=== PATIENT | male | born 1975 | race Caucasian/White ===

== ENCOUNTER 2016-05-11 10:07 | Inpatient (IN) | payer MEDICAID ==
[~2016-05-11] VITALS: Ht 170.2 cm; Wt 156.0 kg
--- NOTE | ~2016-05-11 | ECH ---
Transthoracic Echocardiography Report (TTE) Demographics Patient Name NEMESIO GARDUNO Date of Study 05/11/2016 Patient Number [id number] Visit Number [id number] Date of 1975 Room Number 424 Accession Number [id number] Gender Male Age 40 year(s) Referring Oz Montalvo MD Fitness And Wellness Director Anna Willis Physician RD Physician Interpreting Judah CARDONA Plastic Boat Patcher Physician Wilman Supervising Ordering Physician Oz Montalvo MD, MD/MLP Nurse Stress Pole Shaver Helper Conclusions Contractility Score Summary Normal Left Ventricular contractility was noted. Summary Technically fair exam. The estimated left ventricular ejection fraction is 60-65%. Mild to moderate concentric left ventricular hypertrophy. No significant valvular abnormalities. Recommendation The patient will be given the results of this study by the physician who ordered the exam. Procedure Type of Study TTE procedure Procedure Date Date: 05/11/2016 Start: 03:54 PM Technical Quality: Fair due to body habitus. Indications:Chest pain and Shortness of breath. Appropriate Use Criteria: 9 Height: 70 inches Weight: 339.95 pounds BSA: 2.62 m Rhythm: Within normal limits HR: 87 bpm BP: 154/68 mmHg M-Mode/2D Measurements LV Diastolic Dimension: 4.55 cm LV Systolic Dimension: 3.55 cm LV Septum Diastolic: 1.45 cm LV PW Diastolic: 1.45 cm AO Root Dimension: 3.05 cm Cardiac Output: 6.02 l/min LA Dimension: 3.48 cm Cardiac Index: 2.3 l/min*m RV Diastolic Dimension: 3.57 cm LA volume index: 15 ml/m Post Pericard Effusion: 0.4 cm LVOT: 2.08 cm LVOT VTI: 20.39 cm RV Base: 2.8 cm LV Stroke volume: 69.25 ml RV Mid: 1.9 cm LV Stroke volume index: 26.43 ml/m TAPSE: 3 cm TDI-S': 15 cm/s Doppler Measurements AV Peak Velocity: 1.3 m/s MV Peak E-Wave: 0.86 m/s AV Peak Gradient: 6.76 mmHg MV Peak A-Wave: 0.55 m/s AV Mean Gradient: 2.86 mmHg MV E/A Ratio: 1.58 LVOT Peak Velocity: 1.18 m/s MV P1/2t: 56.5 msec AV Area (Continuity):3.56 cm MV Deceleration Time: 198.9 msec MV Area (PHT): 3.9 cm PV Peak Velocity: 1.08 m/s E' Septal Velocity: 0.14 m/s PV Peak Gradient: 4.69 mmHg E' Lateral Velocity: 0.11 m/s A' Septal Velocity: 0.1 m/s A' Lateral Velocity: 0.09 m/s RA Area: 14.56 cm Findings Left Ventricle The left ventricle is normal in size . Mild to moderate concentric left ventricular hypertrophy. Diastolic assessment reveals normal relaxation. Right Ventricle Normal right ventricle structure and function. Left Atrium Normal left atrial size. Right Atrium Normal right atrial size. Mitral Valve Normal mitral valve structure and function. Trivial mitral regurgitation by color Doppler. Aortic Valve The aortic valve was not well imaged. Tricuspid Valve Normal tricuspid valve structure and function. Pulmonic Valve The pulmonic valve is not well visualized. Pericardial Effusion Trivial circumferential pericardial effusion. Miscellaneous Visualized portions of the aortic root and ascending aorta appear normal in size. Pleural Effusion No evidence of pleural effusion. Contractility Score LV regional wall motion:(0-Non visualized 1-Normal 2-Hypokinesis 3-Akinesis 4-Dyskinesis 5-Aneurysm) Signature
[2016-05-15] MEDS ORDERED: TYLENOL DPS325 MG PO (19:47)
[2016-05-15] MEDS ORDERED: DUONEB DPS3 ML IH (19:47)
[2016-05-15] MEDS ORDERED: ROBITUSSIN DM D30 ML PO (19:47)
[2016-05-15] MEDS ORDERED: LASIX DPS20 MG PO (19:48)
[2016-05-15] MEDS ORDERED: SPIRIVA18 MCG IH (19:48)
[2016-05-15] MEDS ORDERED: BREO ELLIP1 PUFF/DOS IH (19:48)
[2016-05-15] MEDS ORDERED: BENADRYL-DPS25 MG PO (19:48)
[2016-05-15] MEDS ORDERED: MONTELUKAST SOD10 MG PO (19:48)
[2016-05-15] MEDS ORDERED: BACTRIM DS DPS1 TAB PO (19:49)
[2016-05-15] MEDS ORDERED: PROVENTIL HFA6.7 GM IH (19:49)
[2016-05-15] MEDS ORDERED: DELTASONE DPS10 MG PO (19:49)
[2016-05-15] MEDS ORDERED: GUAIFENESIN ER600 MG PO (19:49)
--- NOTE | 2016-05-16 07:47 | HP ---
ADMIT: 05/11/2016 RM/LOC: 424 [facility] MR#: [id number] [address] [facility] [address] [place], [place] [id number] NEMESIO GARDUNO [address] [place] [address] History and Physical SEX: M AGE: 40 : 1975 DATE OF SERVICE: 05/11/2016 REASON FOR HOSPITALIZATION: Dyspnea. HISTORY OF PRESENT ILLNESS: This is a 40-year-old, male patient, who was recently dismissed from [facility] in [place] where he was admitted for pneumonia and asthma exacerbation. He was dismissed after several days of management care and evaluation including venous ultrasound, CTA of the chest, lab evaluation etc. He was staying here in [place] in a motel room until he could transition back to [place], but today, he awakened, took a shower and became dyspneic in the shower. He came to the emergency department for further assessment and is felt to be fluid overloaded with some component of pulmonary edema and CHF. He was given IV Lasix in the emergency room along with some Ativan and started on BiPAP. His oxygenation has improved, as has his dyspnea, although he continues, by review of systems, complaining of shortness of breath. He is having no chest pain, nausea, or vomiting. He denies any recent abdominal pain, but is noted to have elevated ALT on liver enzyme evaluation. PAST MEDICAL HISTORY: Significant for prior suicide attempt, depression, obesity, asthma, recent pneumonia, hospitalization in [place]. PHYSICAL EXAMINATION: VITAL SIGNS: His blood pressure is 131/95, has a temperature of 98.2, sat of 100% with CPAP in place. He reports penicillin allergy. HEENT: His ear, nose, and throat is well kept. He has very poor dentition. HEART: Regular. LUNGS: He has wheezes in both anterior lung arredondo. ABDOMEN: Obese, soft, and he does have tenderness in right upper quadrant. LABORATORY DATA: His AST is 556, BNP 164, white count 26.2. CTA of the chest, mediastinal fat widening. IMPRESSION: 1. Recent pneumonia. 2. Asthma. 3. Increased LFTs. 4. Obesity. PLAN: He is being admitted. We will start him on steroid antibiotic therapy, check echocardiogram, ultrasound his abdomen, and observe closely. Aramis Clinton DO/ modl JOB #: [id number] CC: Aramis Clinton, Attending Physician ADMIT: 05/11/2016 RM/LOC: 424 [facility] MR#: [id number] [address] [place] [id number] NEMESIO GARDUNO [address] [place], [place] [id number] History and Physical SEX: M AGE: 40 : 1975 Aramis Clinton, Family Physician
--- NOTE | 2016-05-27 23:53 | ER ---
ADMIT: 05/11/2016 RM/LOC: 424 [facility] MR#: [id number] [address] [facility] [address] [place] [phone] NEMESIO GARDUNO [address] [place] [address] Emergency Room Report SEX: M AGE: 40 : 1975 DATE: 05/11/2016 ADDENDUM: CHIEF COMPLAINT: Short of breath. HISTORY OF PRESENT ILLNESS: The patient is a 40-year-old gentleman, brought in by EMS for severe shortness of breath. The patient had a recent admission to [place] for approximately 8 days and was discharged 2 days ago. He states that since he has been discharged, he has had increasing shortness of breath and it got quite severe this morning to the point, where he had to call EMS. He was brought in on BiPAP, and had received 2 DuoNeb prior to arrival. He states that this morning, he just got progressively more short of breath and then began sweating significantly. Denies any real chest pain. Denies any recent fevers or chills. He does state that he feels like his legs are extremely swollen to the point where it is even difficult for him to walk and he feels bloated. Denies any change in bowel or bladder function. REVIEW OF SYSTEMS: Ten-point review of systems done, and otherwise negative except as in HPI. PAST MEDICAL HISTORY: Significant for asthma which never required admission until this past month. He does have diagnosis of what could be recent bronchitis or pneumonia. MEDICATIONS: The patient was discharged from [facility] on steroids and breathing treatments. ALLERGIES: SEE NURSE'S NOTE. PHYSICAL EXAMINATION: GENERAL: The patient is alert, is tachypneic, does appear anxious. He is on BiPAP when he arrives. HEENT: Head is atraumatic. Does have poor dentition overall. Airway is patent. There is no stridor. HEART: Tachycardic. LUNGS: He does have some coarse breath sounds bilaterally. I do not hear decreased breath sounds. ABDOMEN: Obese and nontender. He does have some bruising on his abdomen as he was getting prophylactic medicine for DVT while he was recently admitted. EXTREMITIES: The patient has good sensation in all 4 extremities. Moves all 4 extremities. Equal pulses. He has no skin lesions or rashes noted. He does have some edema in bilateral lower extremities but they are equal. I do not feel any calf tenderness or cords. LABORATORY DATA: White count is 26.2. Electrolytes are unremarkable. Glucose is 193. Alkaline phosphatase is 142, AST is 170, ALT is 556. Cardiac enzymes are negative. BNP is 164. ABG; pH 7.4, pCO2 of 42, PO2 of 117, bicarb of 29.3. Procalcitonin 0.18. Lactic acid 3.0. CT chest shows: 1. No evidence of pulmonary embolism. ADMIT: 05/11/2016 RM/LOC: 424 [facility] MR#: [id number] [address] [place] [id number] NEMESIO GARDUNO [place] [id number] Emergency Room Report SEX: M AGE: 40 : 1975 2. Extensive fatty infiltration the mediastinum. EKG shows sinus rhythm, rate of 98, no ST elevation or signs of acute DC. EMERGENCY DEPARTMENT COURSE: The patient arrived, he was still quite tachypneic and states he was short of breath. He did sound like his lungs were wet initially, so he was given an IV dose of Lasix. His EKG did not show any significant pulmonary edema, however. He got Ativan as he was quite anxious and we did place him on our BiPAP here. We were able to wean him off the BiPAP and get him on nasal cannula oxygen. At this point, the patient will be admitted in improved status to Dr. Clinton's service as he is a city-call patient. DIAGNOSES: 1. Dyspnea. 2. Hypoxia. 3. Asthma. 4. Obesity. 5. Elevated LFTs. Daniel Dodson MD/ nancy JOB #: [id number] CC: Aramis Clinton DO, Attending Physician Aramis Clinton DO, Family Physician
--- NOTE | 2016-06-29 08:23 | DS ---
ADMIT: 05/11/2016 RM/LOC: 424 [facility] MR#: [id number] ACC#: [id number] [address] [facility] [address] [place], [place] [phone] NEMESIO GARDUNO [address] [place] [address] General Discharge Summary SEX: M AGE: 40 : 1975 ADMISSION DATE: 05/11/2016 DISCHARGE DATE: 05/14/2016 REASON FOR HOSPITALIZATION: Shortness of breath. HISTORY OF PRESENT ILLNESS: A 40-year-old male patient, who had been dismissed from [facility], where he had been admitted for pneumonia and exacerbation of asthma. After several days of management, he was dismissed but was staying here in [place] when he developed recurrent symptoms. He was trying to get travel arranged to get back to [place] where he lives. When he came to our emergency room, further assessment was felt that he was probably fluid overloaded and with pulmonary edema and heart failure. He was given IV Lasix in the emergency room as well as aspirin and started on BiPAP therapy. He is severely obese and suspect that he also has component of [place]wickian obesity hypoventilation syndrome. During his hospital stay, we did repeat cardiac enzymes. Evaluated his inflammatory markers, performed blood cultures, performed ultrasound of the abdomen for elevated liver enzymes; did hemoglobin A1c, TSH, and followup echocardiogram. I started him on Merrem and Solu-Medrol. He was found on ultrasound to have fatty liver. I did perform hep C and hep B evaluation. He was also felt to have mediastinal fat and cardiomegaly on chest x-ray. Slowly, I weaned his steroids and transitioned him to oral prednisone therapy. On 05/14/2016, Dr. Zaman saw him and felt he was appropriate for dismissal. He was dismissed with a final diagnoses of acute exacerbation COPD, obesity, hypoventilation syndrome, severe obesity, diabetes mellitus, metabolic syndrome, hepatic steatosis, type 2 diabetes, and cardiomegaly. We did provide him diabetic education and recommended he follow up with his primary doctor in [place] within 10-14 days of dismissal and that I would provide him a city call followup evaluation in the interval if he had change in status. Aramis Clinton DO/ nancy JOB #: [id number] CC: Aramis Clinton DO, Attending Physician Aramis Clinton DO, Family Physician
== END 2016-05-14 14:15 | disposition home or self-care (01) | DRG 191 ==
LOC: ER 10:07 → 4PCU 12:15
PROVIDERS: ADMIT Internal Medicine
DX: J44.1 Chronic obstructive pulmonary disease with (acute) exacerbation (principal); E66.2 Morbid (severe) obesity with alveolar hypoventilation; E87.2 Acidosis; E88.81 Metabolic syndrome and other insulin resistance; Z68.43 Body mass index [BMI] 50.0-59.9, adult; R09.02 Hypoxemia; F32.9 Major depressive disorder, single episode, unspecified; J45.909 Unspecified asthma, uncomplicated; F41.9 Anxiety disorder, unspecified; R79.89 Other specified abnormal findings of blood chemistry; M06.9 Rheumatoid arthritis, unspecified; E11.9 Type 2 diabetes mellitus without complications; K76.0 Fatty (change of) liver, not elsewhere classified; I51.7 Cardiomegaly